=== PATIENT | male | born 1955 | race Caucasian/White ===

== ENCOUNTER → 2018-02-15 | Day surgery (SDC) | payer OTHER ==
[2018-02-12 13:26] LABS: BASOPHILS # (AUTO) 0.1 (0.0-0.1); BASOPHILS % 1.2 % (0.0-1.0); EOSINOPHILS # (AUTO) 0.3 (0.0-0.4); EOSINOPHILS % 5.5 % (0.0-6.0); HEMATOCRIT 40.2 % (38.2-49.6); HEMOGLOBIN 13.3 g/dL (14.0-18.0); LYMPHOCYTES # (AUTO) 1.9 (1.0-3.2); LYMPHOCYTES % 32.2 % (18.0-39.1); MEAN CORPUSCULAR HEMOGLOBIN 28.7 pg (28-32); MEAN CORPUSCULAR HGB CONC 33.1 g/dL (31-35); MEAN CORPUSCULAR VOLUME 86.8 fL (81-99); MONOCYTES # (AUTO) 0.4 (0.2-0.8); NEUTROPHILS # (AUTO) 3.2 (2.1-6.9); NEUTROPHILS % 53.8 % (38.7-80.0); PLATELET COUNT 259 x10e3/uL (140-360); RED BLOOD COUNT 4.63 x10e6/uL (4.3-5.7); RED CELL DISTRIBUTION WIDTH 13.2 % (11.7-14.4)
[2018-02-12 13:41] LABS: ALANINE AMINOTRANSFERASE 23 IU/L (0-55); ALBUMIN 4.1 g/dL (3.5-5.0); ALBUMIN/GLOBULIN RATIO 1.3 (0.8-2.0); ALKALINE PHOSPHATASE 87 IU/L (40-150); ANION GAP 13.1 mmol/L (8-16); BLOOD UREA NITROGEN 16 mg/dL (7-26); BUN/CREATININE RATIO 18 (6-25); CALCIUM 9.5 mg/dL (8.4-10.2); CARBON DIOXIDE 28 mmol/L (22-29); CHLORIDE 102 mmol/L (98-107); CHOL/HDL RATIO 3.4 (3.9-4.7); CHOLESTEROL 145 MD/DL (0-199); CREATININE, SERUM 0.88 mg/dL (0.72-1.25); EST GLOMERULAR FILTRATION RATE > 60 ML/MIN (60-); GLUCOSE 95 mg/dL (74-118); HDL CHOLESTEROL 43 MG/DL (40-60); LDL CHOLESTEROL 79 MG/DL (60-130); POTASSIUM 4.1 mmol/L (3.5-5.1); SODIUM 139 mmol/L (136-145); TRIGLYCERIDES 114 MG/DL (0-149)
[~2018-02-15] VITALS: Ht 180.3 cm; Wt 117.9 kg
[2018-02-15] VITALS (12 sets, daily range): BP systolic 89–126; BP diastolic 61–80
[~2018-02-15] MED LIST: ALPRAZOLAM 0.5 MG TAB ONE; ASPIRIN 325 MG TAB ONE; ASPIRIN81 MG PO; ATORVASTATIN CA20 MG PO; DIPHENHYDRAMINE HCL 25 MG CAP ONE; EPTIFIBATIDE 10 ML ONE; FENTANYL CITRATE/PF 100MCG/2 ML INJ ONE; HEPARIN SOD (PORCINE) 1000 UNIT/ML 30ML ONE; HEPARIN SOD/SOD CHLORIDE 2,000 ML ONE; IOPAMIDOL 370 MG/ML 200 ML INFUS..BTL INJ ONE; LATANOPROST2.5 ML OP; LIDOCAINE HCL 2% LOCAL 20 ML VIAL ONE; MIDAZOLAM HCL 2 MG/2 ML VIAL ONE; NITROGLYCERIN/D5W 200 MCG/ML 250 ML ONE; OMEGA 3-6-9 CO400 MG PO; OMEPRAZOLE20 M1 PO; PRASUGREL 10 MG TAB ONE; SODIUM CHLORIDE 0.9% 1000ML 1,000 ML ONE; VERAPAMIL HCL 2.5 MG/ML 2 ML VIAL ONE; [UNRECOGNIZED DRUG - OTHER] PO; [UNRECOGNIZED DRUG - OTHER] PO
--- NOTE | 2018-03-18 14:34 | Operative Report ---
DATE OF PROCEDURE: PROCEDURES PERFORMED 1. Left heart catheterization, selective coronary angiography. 2. Deployment, right wrist transradial band. COMPLICATIONS: None. RECOMMENDATIONS: Dual antiplatelet therapy. Access was obtained in the right radial artery. A 5-Lao sheath was placed. Coronary angiography demonstrated diffuse 30% to 50% stenosis in the circumflex and right coronary artery, right and left anterior descending artery 70%, apical left anterior descending artery 90%, 2-mm vessel. Decision was made to intervene on the left anterior descending artery. The patient received heparin for anticoagulation. A short wire was advanced across the lesion for support. Primary stent 2.75 x 12 mm deployed at 16 atmospheres. Excellent end result less than 10% residual stenosis, ISIDORO-3 flow. No complications. Guide and sheath were removed. Right wrist TR band applied. Patient discharged home the same day. Job#: [id number] PARAMJIT
== END | disposition home or self-care (01) ==
LOC: CATH LAB 06:31
PROVIDERS: ATTEND Internal Medicine Interventional Cardiology
DX: I25.10 Atherosclerotic heart disease of native coronary artery without angina pectoris (principal); Z01.812 Encounter for preprocedural laboratory examination; Z79.82 Long term (current) use of aspirin
CPT/HCPCS: 36415; 80053; 80061; 85025; 92928; 93454; C1874; C1887 ×2; J1327; J1644; J2001; J2250; J7030; Q9967